=== PATIENT | female | born 1985 | race Caucasian/White ===

== ENCOUNTER → 2023-06-12 10:04 | Outpatient (REF) | payer OTHER, SELFPAY | LOC: RAD 10:04 | PROVIDERS: ATTENDING PHYSICIAN Physician Assistant Medical | DX: R10.13 Epigastric pain (principal) | CPT/HCPCS: 76700 ==

== ENCOUNTER → 2023-10-17 09:47 | Outpatient (REF) | payer OTHER, SELFPAY | LOC: HWRAD 09:47 | PROVIDERS: ATTENDING PHYSICIAN Physician Assistant Medical | DX: R22.1 Localized swelling, mass and lump, neck (principal) | CPT/HCPCS: 76536 ==

== ENCOUNTER 2024-08-30 20:17 | Emergency (ER) | payer OTHER, SELFPAY ==
[2024-08-30 20:22] VITALS: BP 146/86
--- NOTE | 2024-08-30 20:22 | ED.GENMED ---
History of Present Illness
General
Chief Complaint: DVT/Possible Blood Clot
Source: patient
Exam Limitations: none
Time Seen by Provider: 08/30/24 20:22
Nursing documentation reviewed up to this point in time: agreed with
History of Present Illness
History of Present Illness:
Note:
CHIEF COMPLAINT(S)
Swelling and discomfort in the left calf.
HISTORY OF PRESENT ILLNESS
The patient is a 38-year-old female with no pmh who presents today with swelling in the left calf, reported to have started the previous night, particularly early afternoon. The patient describes the swelling as tight and noticeable, with her
personal measurement showing approximately half an inch more swelling than the other leg. The patient denies any trauma or injury and states the discomfort is mainly localized to the calf, with occasional shooting pain. There is no history of blood
clots, and the patient notes her diet as being poor. She has a sedentary lifestyle due to working from home, with long working hours contributing to inactivity. She denies any recent long-distance travel. The patient has applied a compression sock,
which provided some relief, and reports tenderness upon pressure. She has also tried OTC pain control, ice, elevation which has also helped. There are no associated symptoms such as chest pain or shortness of breath. No numbness, tingling, or
constant pain, just an intermittent mild discomfort that becomes more noticeable when flexing the calf. The patient also notes that she was outside recently and had gotten bitten by multiple mosquitos and has been itching the area.
SOCIAL HISTORY
The patient does not smoke cigarettes and does not use oral contraceptive pills. She works from home and has been experiencing long working hours leading to a sedentary lifestyle.
PHYSICAL EXAM
Nursing notes reviewed and vital signs reviewed.
General: Patient is well appearing and in no acute distress; non-toxic
Skin: Warm and dry, scattered insect bites noted to bilateral lower extremities
Head: Normocephalic, atraumatic
Eyes: Sclera non-icteric. EOMs intact.
Cardiac: Regular rate and rhythm, no murmurs
Pulm: Normal respiratory effort, no wheezes, rales, rhonchi
MSK: Full ROM of bilateral lower extremities. No calf tenderness to palpation bilaterally. 2+ DP and PT pulses bilaterally. No swelling.
Neuro: CN II-XII intact, no focal neurologic deficits. Sensation intact and equal.
Psychiatric: Appropriate mood and affect.
PLAN
Order a venous ultrasound to rule out a blood clot in the left calf.
DIFFERENTIAL DIAGNOSIS
The Differential Diagnosis includes, in no particular order and is not limited to:
1. Deep vein thrombosis
2. Muscle strain
3. Horton�s cyst
4. Lipedema
5. Venous insufficiency
6. Lymphedema
7. Cellulitis
8. Popliteal artery entrapment syndrome
9. Compartment syndrome
10. Hematoma
MDM/DISPOSITION
The patient is a 38-year-old female with no pmh who presents today with swelling in the left calf, reported to have started the previous night, particularly early afternoon. No clear trauma to the leg other than self induced scratching from mosquito
bites. On exam, she is well appearing no calf tenderness to palpation bilaterally. 2+ DP and PT pulses bilaterally. No swelling that I am able to appreciate. No erythema. Suspect calf sprain/strain vs localized dermatitis from insect bites. Advised
patient to continue to monitor symptoms and follow up with PCP. Pt stable for discharge.
Past History
Past History
ED Past Medical History: None
ED Past Surgical History: Gynecological and Urological (teeth)
Social History
Tobacco: Non-smoker
Personal:
Living: with family
Family History
Family History: Other (Noncontributory)
Review of Systems
Review of Systems
All Other Systems: ROS reviewed and negative except as documented in HPI and ROS
Phy Exam
Physical Exam
Physical Exam:
see hpi
Course
Orders/Labs/Results
Orders:
Orders
08/30/24 20:40
US Legs, Left [US Periph Venous LOWER Ext LT] Urgent
Comment:
Reason For Exam: left calf pain
Vital Signs
Initial and Last Documented VS:
Initial Vital Signs
Temp Pulse Resp BP Pulse Ox
98.6 F 102 20 146/86 100
08/30/24 20:22 08/30/24 20:22 08/30/24 20:22 08/30/24 20:22 08/30/24 20:22
Last Documented Vital Signs
Temp Pulse Resp BP Pulse Ox
98.6 F 80 15 118/74 99
08/30/24 20:22 08/30/24 22:05 08/30/24 22:05 08/30/24 22:05 08/30/24 22:05
*Pulse Oximetry
Patient hypoxic: no
*Critical Care Note
Total Time (30-74mins, 75-104mins- exclusive of procedures): Not Applicable
ED Attending Note
-
Portions of this chart may have been created with voice recognition software.� Occasional wrong word or��sound alike� substitutions may have occurred due to the inherent limitations of voice recognition software.
Discharge Plan
Departure
Patient Disposition: Home (Routine Discharge)
Date of Disposition: 08/31/24
Time of Disposition: 00:04
Patient with high blood pressure during this ER visit?: Yes
Condition: Good
Discharge Problem:
Pain of left calf
Instructions: Muscle strain - ED discharge instructions, BLOOD PRESSURE
Prescriptions:
No Action
Iron Tab
1 tab PO DAILY
Gummies Children Multivitamin
1 tab PO DAILY
Fish Oil
1 tab PO DAILY
vitamin K2
600 mcg PO DAILY
Referrals:
[facility], [Other]
Lindsey Ye PA-C [Family Provider, Family Practice]
Activity Restrictions/Additional Instructions:
Please follow-up with your primary care provider.
PLEASE RETURN EMERGENCY DEPARTMENT SHOULD YOU GET ANY ACUTE WORSENING OF YOUR PAIN, INCREASING SWELLING, REDNESS, FEVERS OR CHILLS, CHEST PAIN OR SHORTNESS OF BREATH, OR ANY OTHER SIGNS OR SYMPTOMS WORRISOME TO YOU.
Interventions
Interventions:
*Risk Screen - Suicide Last Done: 08/30/24 20:22
*General Assessment Last Done: 08/30/24 20:22
*Neglect/Abuse Screening Last Done: 08/30/24 20:22
*ED- Fall Risk Assessment Last Done: 08/30/24 20:22
*ED COVID-19 Vaccine History Last Done: 08/30/24 20:22
*Nursing Disposition Last Done: 08/31/24 00:08
ED- Cardiac Assessment Last Done: 08/30/24 22:00
ED- Pulmonary Assessment Last Done: 08/30/24 22:05
ED-Peripheral Vascular Assessment Last Done: 08/30/24 22:07
ED-Skin Assessment Last Done: 08/30/24 22:05
Discharge Date and Time
Discharge Date/Time: 08/31/24 00:09
Print Language: CZECH
[2024-08-30 22:05] VITALS: BP 118/74
== END 2024-08-31 00:09 | disposition home or self-care (01) ==
LOC: EMR 20:17
PROVIDERS: EMERGENCY PHYSICIAN Emergency Medicine; FAMILY PHYSICIAN Physician Assistant Medical
DX: M79.662 Pain in left lower leg (principal); R22.42 Localized swelling, mass and lump, left lower limb
CPT/HCPCS: 99284; 93971